=== PATIENT | female | born 1990 | race African-American/Black ===

== ENCOUNTER 2019-03-14 11:14 | Outpatient (CLI) | payer OTHER ==
--- NOTE | 2019-03-14 12:05 | RAD ---
LEFT FEMUR 4 VIEWS: INDICATION: Pain in left leg. Left femur is unremarkable. Left hip and the visualized left knee unremarkable. IMPRESSION: No acute finding. POS: [facility]
== END 2019-03-14 11:15 | disposition home or self-care (01) ==
LOC: SCSRAD 11:14
PROVIDERS: ATTEND Psychiatry & Neurology Neurology
DX: M79.605 Pain in left leg (principal)